=== PATIENT | female | born 1935 | race Caucasian/White ===

== ENCOUNTER → 2016-10-15 | Day surgery (SDC) | payer OTHER ==
[~2016-10-15] MED LIST: ADVAIR 230-21 INH; ALBUTEROL17 GM INH; ALBUTEROL20 ml INH; ALEVE; ALPRAZOLAM PO; ALPRAZOLAM0.25 MG PO; ALPRAZOLAM0.5 MG PO; AMBIEN CR PO; AMBIEN10 MG PO; ASPIRIN PO; ASPIRIN81 M1 PO; CARAFATE LIQUID PO; CARAFATE1 G PO; CEFTIN500 MG PO; CIPRO PO; COMBIVENT INH14.7 G1 IN; COMBIVENT INH14.7 GM INH; COMBIVENT MININEB INH; COMBIVENT14.7 GM INH; CRESTOR; CRESTOR40 MG PO; DICYCLOMINE HCL20 MG PO; EFFEXOR XR PO; EFFEXOR XR75 MG PO; EFFEXOR75 MG PO; ELMIRON100 MG PO; FLEXERIL PO; FLEXERIL10 M1 PO; GABAPENTIN300 MG PO; HYDROCODON-ACE1 EAC1 PO; HYDROCODONE-APA1 T45 PO; IBUPROFEN800 MG PO; KETOPROFEN PO; LIPITOR80 MG PO; LORCET 10/650 T1 TAB PO; LORTAB 5/500 TA1 TA1 PO; LORTAB 7.5-5001 TAB PO; MEDROL PO; MEDROL4 MG/DOSE- PO; NEURONTIN PO; NEXIUM 24HR20 MG PO; NEXIUM PO; OMEPRAZOLE20 M1 PO; OMEPRAZOLE40 MG PO; OYSTER CALCIUM500 MG PO; PEPCID AC20 M2 PO; PERCOCET7.5 PO; PRAVACHOL80 MG PO; PREDNISONE10 MG/DOSE PO; PRILOSEC20 M1 PO; PRO AIR; PROMETHAZINE12.5 MG PO; PROTONIX PO; QVAR7.3 G1 INH; REQUIP0.25 MG PO; SIMVASTATIN80 MG PO; SINGULAIR PO; SPIRIVA18 MCG INH; SYMBICORT; SYMBICORT INH; TRAMADOL HCL50 M1 PO; TYLOX 5/500 CAP1 CAP PO; ULTRAM PO; VIBRAMYCIN100 M1 PO; VICODIN 5/500 T1 TAB PO; VITAMIN B12; VITAMIN B122500 MCG PO; VITAMIN D 4001 UDTAB PO; VITAMIN D1000 UNI1 PO; VITAMIN D350000 UNIT PO; VITAMIN D50000 UNIT PO; XANAX1 MG PO; XOPENEX HFA15 GM NEB; XOPENEX0.63 MG/3 IH; XOPENEX0.63 MG/3 IN; XOPENEX1.25 MG/3 IH; XOPENEX1.25 MG/3 NEB; XOPENEX45 MCG/15 IH; ZITHROMAX PO; ZOCOR PO
--- NOTE | ~2016-10-15 | OR ---
Unit #: [id number] #: [id number] Patient: LOLA HODGES [id number] [address] [place], [place] [address] [id number] O MR#: [id number] NAME: LOLA HODGES. ROOM: Date of Procedure: 10/15/2016 Admission Date: 10/15/2016 Surgeon: Cameron Ashford M.D. : 1935 Attending Physician: Cameron Ashford M.D. Primary Care Physician: Beatriz Parada M.D. PROCEDURE OPERATIVE NOTE PREOPERATIVE DIAGNOSIS 1. Radiculopathy. 2. Lumbar disk herniation. 3. Spondylolisthesis. 4. Back pain. POSTOPERATIVE DIAGNOSIS 1. Radiculopathy. 2. Lumbar disk herniation. 3. Spondylolisthesis. 4. Back pain. PROCEDURE PERFORMED Lumbar epidural steroid injection with intravenous sedation and fluoroscopic guidance for needle localization. HISTORY The patient is a 81-year-old female 7 months status post microdiskectomy at the L4-L5 level. This resulted in significant improvement in her symptom complex for about two to three months, when she had return of pain to the right, but a little higher than it had been before, radiating into her hip. 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 She also said that she was suffering from radiculitis. She is not a good surgical candidate due to her significant osteopenia and surgery that would be required with plans for a trial of epidural steroids to see if we can settle this down. We will trial a translaminar approach. If that does not help we will look at a right transforaminal approach based on her pathology. PROCEDURE The patient was placed in the seated position. Standard monitors were applied. Versed 2 mg was given for sedation and anxiolysis, which were adequate. Vital signs remained stable. Sterile prep and drape then of the lumbosacral area was performed. The skin at the L3-L4 level was localized with 1% lidocaine. An 18-gauge OrderMotion needle was advanced using loss of resistance technique and fluoroscopic guidance in toward the epidural space. After confirming the proper positioning with fluoroscopy and radiographic contrast, 80 mg of Depo-Medrol and 4 mL of 0.125% bupivacaine were deposited. The patient tolerated the procedure otherwise well and was discharged to the recovery room in stable condition. Unit #: [id number] #: [id number] Patient: LOLA HODGES Dictated by... Cameron Ashford M.D. LHP/gz TD: 10/22/2016 10:27 JOB #: [id number] CC: Cameron Ashford M.D. PROCEDURE OPERATIVE NOTE Page 1 of 1 X Cameron Ashford MD X PROCEDURE OPERATIVE NOTE
== END | disposition home or self-care (01) ==
LOC: CCSC 09:15
DX: M51.16 Intervertebral disc disorders with radiculopathy, lumbar region (principal); M43.16 Spondylolisthesis, lumbar region
CPT/HCPCS: J1040; J2250

== ENCOUNTER → 2017-02-04 | Day surgery (SDC) | payer OTHER ==
--- NOTE | ~2017-02-04 | OR ---
Unit #: [id number] #: [id number] Patient: LOLA HODGES [id number] [address] [place], [place] [address] [id number] O MR#: [id number] NAME: LOLA HODGES ROOM: Date of Procedure: 02/04/2017 Admission Date: 02/04/2017 Surgeon: Cameron Ashford M.D. : 1935 Attending Physician: Cameron Ashford M.D. Primary Care Physician: Beatriz Parada M.D. OPERATIVE REPORT PREOPERATIVE DIAGNOSES 1. Post-laminectomy herniated nucleus pulposus. 2. Spondylolisthesis. 3. Back pain. 4. Radiculopathy. POSTOPERATIVE DIAGNOSES 1. Post-laminectomy herniated nucleus pulposus. 2. Spondylolisthesis. 3. Back pain. 4. Radiculopathy. PROCEDURE PERFORMED Lumbar epidural steroid injection with intravenous sedation and fluoroscopic guidance for needle localization. INDICATIONS FOR PROCEDURE The patient is a 81-year-old female, status post L4-L5 laminectomy. She has anterolisthesis at that level and significant pathology at the L3-L4 level. She is not considered a good surgical candidate. She had a single epidural steroid injection done 4 months ago which did very well for about 3 months. She had return of the pain over the last several weeks in the same distribution. She had orthopedic re-evaluation associated with her lumbar spine and requests to repeat epidural steroid injection which is appropriate based on history, pathology, and symptomatology. DESCRIPTION OF PROCEDURE The patient was placed in the seated position. Standard monitors were applied. Versed 2 mg was given for sedation and anxiolysis, which were adequate. Vital signs remained stable. Sterile prep and drape then of lumbar area was performed. The skin at the L3 level was localized with 1% lidocaine. An 18-gauge SocialReptead needle was then advanced via loss of resistance technique under fluoroscopic guidance in toward the epidural space. After confirming proper positioning with fluoroscopy and radiographic contrast, 80 mg of Depo-Medrol and 6 mL of 0.5% lidocaine . The patient tolerated the procedure otherwise well and was discharged to the recovery room in stable condition. Dictated by... Cameron Ashford M.D. Unit #: [id number] #: [id number] Patient: LOLA HODGES LHP/eron TD: 02/04/2017 13:54 JOB #: [id number] CC: [facility] OPERATIVE REPORT Page 1 of 1 X Cameron Ashford MD X PROCEDURE OPERATIVE NOTE
== END | disposition home or self-care (01) ==
LOC: CCSC 10:35
DX: M51.16 Intervertebral disc disorders with radiculopathy, lumbar region (principal); M43.16 Spondylolisthesis, lumbar region; Z88.0 Allergy status to penicillin; Z88.1 Allergy status to other antibiotic agents; Z88.5 Allergy status to narcotic agent; Z88.7 Allergy status to serum and vaccine; Z79.899 Other long term (current) drug therapy; Z98.890 Other specified postprocedural states
CPT/HCPCS: J1040; J2250

== ENCOUNTER → 2017-02-18 | Outpatient (CLI) | payer OTHER ==
--- NOTE | ~2017-02-18 | US37 ---
[facility] A Service of [facility] RADIOLOGY TEXT RESULTS PATIENT: LOLA HODGES LOCATION: [facility] : 39 UNIT #: [id number] AGE: [address]: Beatriz Parada MD SEX: F ORDER DR: [id number] [facility] [address] [place], [place] [address] [id number] O MR#: [id number] Acc #: [id number] NAME: LOLA HODGES : 1935 SEX: F STUDY DATE/TIME: 02/18/2017 15:28 UNIT: [facility] ROOM: STUDY DESCRIPTION: US Carotid W/Doppler Bilateral Attending Physician: Beatriz Parada M.D. Referring Physician: Beatriz Parada M.D. Ordering Physician: Beatriz Parada M.D. Primary Care Physician: Beatriz Parada M.D. MEDICAL IMAGING REPORT This report is preliminary unless electronic signature is present EXAM Carotid Doppler bilateral 02/18/2017 HISTORY Bilateral carotid bruits on physical examination 02/11/2017. Dizziness for 2 months. Evaluate for carotid stenosis. TECHNIQUE Lindsay-scale carotid artery images were obtained as well as Doppler waveform spectral analysis and color flow Doppler imaging. The examination was interpreted according to NASCET criteria. FINDINGS There is no hemodynamically significant stenosis in either carotid artery. Peak systolic velocity in the right and left internal carotid arteries was 78 cm/sec and 95 cm/sec respectively. Antegrade blood flow is seen in both vertebral arteries. IMPRESSION No hemodynamically significant stenosis in either carotid artery. Dictated by... Martin Navarrete M.D. THIS IS AN ELECTRONICALLY VERIFIED REPORT Martin Navarrete M.D. at 02/19/2017 7:27 AM DENA/vernon TD: 02/18/2017 22:54 JOB #: [id number] [facility] A Service [facility] RADIOLOGY TEXT RESULTS PATIENT: LOLA HODGES LOCATION: [facility] #: [id number] : 39 UNIT #: [id number] AGE: [address]: Beatriz Parada MD SEX: F ORDER DR: MEDICAL IMAGING REPORT Page 1 of 1 COPY
--- NOTE | ~2017-02-18 | CT55 ---
[facility] A Service of [facility] RADIOLOGY TEXT RESULTS PATIENT: LOLA HODGES [facility] UNIT #: [id number] AGE: [address]: Beatriz Parada MD SEX: F ORDER DR: [id number] [facility] [address] [place], [place] [address] [id number] O MR#: [id number] Acc #: [id number] NAME: LOLA HODGES : 1935 SEX: F STUDY DATE/TIME: 02/18/2017 15:15 UNIT: [facility] ROOM: STUDY DESCRIPTION: CT Chest W Con Attending Physician: Beatriz Parada M.D. Referring Physician: Beatriz Parada M.D. Ordering Physician: Beatriz Parada M.D. Primary Care Physician: Beatriz Parada M.D. MEDICAL IMAGING REPORT This report is preliminary unless electronic signature is present EXAM CT chest with contrast INDICATIONS Bilateral pulmonary nodules and left-sided chest pain since September 2016. TECHNIQUE Axial CT images were obtained from thoracic inlet through the dome of the diaphragm following the administration of intravenous contrast material. This CT exam was performed with one or more of the following radiation dose reduction techniques: automatic exposure control, adjustment of mA and/or kV according to patient size, and iterative reconstruction. FINDINGS Patient has some stable appearing ground-glass infiltrate within the right upper lobe when compared to July 2016. Some tree-in-bud infiltrates are seen more inferiorly which may be new when compared to the prior examination, but are favored to be infectious or inflammatory in etiology. There is a pleural-based nodule seen within the right lower lobe which has been unchanged since January 2015 and thus is benign. Within the left upper lobe, there is a nodule measuring up to 5 mm in size which I am not completely convinced was present on the prior CT, attention to it on a followup CT in July 2017 is recommended. Again the patient has a heterogeneous appearance to the thyroid gland. Trachea and esophagus appear unremarkable. There is no pleural or pericardial effusion. Mediastinal lymph nodes do not appear pathologically enlarged. Thoracic aorta measures within normal size limits. Images through the upper abdomen demonstrate bilateral parapelvic cysts. I do not see any acute abnormalities within the upper abdomen. Low-attenuation lesion is seen within the spleen and is favored to represent benign lesion such as cyst or a hemangioma. It was also present in 2014. Review of bony windows do not demonstrate any aggressive osseous STS. [facility] A Service of [facility] RADIOLOGY TEXT RESULTS PATIENT: LOLA HODGES LOCATION: [facility] : 39 UNIT #: [id number] AGE: [address]: Beatriz Parada MD SEX: F ORDER DR: abnormalities. IMPRESSION 1. Patient has some ground-glass infiltrates within the right upper lobe which I think have been unchanged since July 2016. There is some tree-in-bud infiltrates seen within the right upper lobe adjacent to the fissure which may be new when compared to the prior exam, but are favored to be infectious or inflammatory. There is a 5 mm nodule seen within the left upper lobe which I am not convinced was present on the prior exam; I would suggest attention to it on a followup CT in July 2017. 2. Please see the body of the report for other additional incidental findings. Dictated by... Karyn Kearney M.D. THIS IS AN ELECTRONICALLY VERIFIED REPORT Karyn Kearney M.D. at 02/19/2017 5:15 PM AFF/to TD: 02/18/2017 22:32 JOB #: [id number] MEDICAL IMAGING REPORT Page 1 of 1 COPY
[2017-02-18 17:01] LABS: POC - CREATININE 0.72 mg/dL (0.44-1.03); POC - GFR >60.0 mL/min (>60)
== END | disposition home or self-care (01) ==
LOC: CCAT 13:24
PROVIDERS: Family Medicine
DX: R09.89 Other specified symptoms and signs involving the circulatory and respiratory systems (principal); R91.8 Other nonspecific abnormal finding of lung field; R91.1 Solitary pulmonary nodule
CPT/HCPCS: 71260; 82565; 93880; Q9967